=== PATIENT | female | born 1965 | race Caucasian/White ===

== ENCOUNTER → 2023-08-19 | Outpatient (CLI) | payer BC ==
--- NOTE | 2023-08-19 12:37 | CA ---
Stress Echo Report Lorraine Rich Age: 57 Gender: F : 1965 Exam Date: 08/19/2023 10:17 Exam Location: [facility] Ht (in): 62 Wt (lb): 155 Ordering Physician: Destini Copeland DO Referring Physician: Negar Hatch Thread Roller: Beatrice Cristobal RDCS Technologist Procedure CPT: Indication: Z82.49 FAMILY HX OF ISCHEM HEART DIS AND OT R07.89 ICD-9 Codes: Rhythm: Patient History: DIFFICULTY IN BREATHING, ELEVATED CHOLESTEROL LEVELS, FAMILY HX OF HEART DISEASE, PRIOR SMOKER Cardiac Medications: Medications in past 24 hours: Contrast: Stress Results Protocol: Derick Total dose(mL): Exercise Duration (min:sec): 9:[address] Depression (mm): Angina Score: Jensen Score: METS: 11.1 Resting HR: 77 Resting BP: 155 / 74 Peak HR: 160 Peak BP: 208 / 67 Max Predicted HR: 164 98 % Max Predicted HR Target HR: 139 Double Product: 30043 Stress Summary: BP Response: Reason for Termination: MAX EXERTION/TARGET HR Cardiac Symptoms: NO SYMPTOMS ECG Analysis Resting ECG: Stress ECG: Arrhythmia: Echo Analysis Resting Echo: Peak Echo Analysis: MEASUREMENTS (Male/Female) Normal Values CONCLUSIONS Excellent exercise tolerance Mildly abnormal EKG changes noted Questionable area in the inferior wall concerning for ischemia Overall the stress test is abnormal and concerning for ischemia Dr. Alex Hall MD (Electronically Signed) Final Date: 19 August 2023 12:37
== END | disposition home or self-care (01) ==
LOC: RADNMMAIN 09:49
PROVIDERS: ATTEND Family Medicine
DX: R94.31 Abnormal electrocardiogram [ECG] [EKG] (principal); R07.89 Other chest pain; E78.00 Pure hypercholesterolemia, unspecified; R06.02 Shortness of breath; Z82.49 Family history of ischemic heart disease and other diseases of the circulatory system
CPT/HCPCS: 93351

== ENCOUNTER → 2023-08-31 | Outpatient (CLI) | payer BC ==
[2023-08-31 18:18] LABS: HCT 39.3 % (37.2-46.3); HGB 13.1 g/dL (12.0-15.0); MCH 31.6 pg (27.0-32.0); MCHC 33.3 g/dL (32.0-37.0); MCV 94.9 FL (80.0-97.0); NRBC Per 100 WBC 0 X 10*3/uL (0.00-0.01); Platelet Count 291 X 10*3/uL (140-440); RBC 4.14 X 10*6/uL (4.10-5.20); RDW 12.2 % (11.5-14.5)
[2023-08-31 18:43] LABS: BUN/Creat Ratio 18.25 Ratio (12.00-20.00); Blood Urea Nitrogen 14.6 mg/dL (9.0-27.0); Calcium 9.4 mg/dL (8.7-10.3); Carbon Dioxide 26.2 mmol/L (21.6-31.8); Chloride 105 mmol/L (96-109); Glucose 115 mg/dL (70-110); Sodium 140 mmol/L (135-145)
== END | disposition home or self-care (01) ==
LOC: LABPAT 09:39
PROVIDERS: ATTEND Internal Medicine Cardiovascular Disease
DX: Z01.812 Encounter for preprocedural laboratory examination (principal); R07.2 Precordial pain
CPT/HCPCS: 36415; 80048; 85027

== ENCOUNTER 2023-09-14 06:22 | Day surgery (SDC) | payer BC ==
[2023-09-09 11:56] VITALS: BMI 27.8
[~2023-09-14 06:22] MED LIST: ALPRAZolam 0.25 MG TAB PO PRN; ATORVASTATIN 80 MG TAB PO STA; HEPARIN SODIUM,PORCINE (1 ML) 2,500 UNIT in SODIUM CHLORIDE 0.9% 250 ML IRRIGATION PRN; HEPARIN SODIUM,PORCINE 10,000 UNIT in SODIUM CHLORIDE 0.9% 1,000 ML IRRIGATION PRN; NITROGLYCERIN SL TABS 0.4 MG TAB SUBLINGUAL PRN
[2023-09-14] MEDS: SODIUM CHLORIDE 0.9% 1,000 ML IV ONE (06:44)
[2023-09-14] MEDS: ALPRAZolam 0.5 MG TAB PO PRN (06:59)
[2023-09-14] MEDS: SODIUM CHLORIDE 0.9% 1,000 ML in EMPTY BAG 1 BAG IV SCH (07:01)
[2023-09-14] MEDS: ASPIRIN 325 MG TAB PO STA (07:01)
[2023-09-14] MEDS ORDERED: LIDOCAINE 1% INJ 10MG/ML (20 ML MDV) ONE (07:10)
[2023-09-14] MEDS ORDERED: HEPARIN SODIUM 1,000 UN/ML (10ML VL) ONE (07:10)
[2023-09-14] MEDS ORDERED: VERAPAMIL 2.5 MG/ML 2 ML AMP ONE (07:10)
[2023-09-14 07:22] VITALS: RESP 16; TEMP 98.4
[2023-09-14] MEDS ORDERED: fentaNYL (PF) 50 MCG/ML 2 ML AMP ONE (07:26)
[2023-09-14] MEDS: MIDAZOLAM 2 MG/2 ML VIAL IVP ONE (07:34)
[2023-09-14] MEDS: fentaNYL (PF) 50 MCG/ML 2 ML AMP IVP ONE (07:34)
[2023-09-14] MEDS: LIDOCAINE 1% INJ 10MG/ML (20 ML MDV) SQ ONE ×2 (07:34→07:35)
[2023-09-14] MEDS: VERAPAMIL SYRINGE (5 MG/10 ML) INTRAARTER ONE (07:42)
[2023-09-14] MEDS: HEPARIN SODIUM 1,000 UN/ML (10ML VL) IVP ONE (07:49)
[2023-09-14] MEDS: IOPAMIDOL-370 100ML BTL INJ ONE (08:02)
--- NOTE | 2023-09-14 08:44 | CC ---
CARDIAC CATHETERIZATION REPORT INDICATIONS: Chest pain with abnormal stress test showing ischemia in the right coronary artery distribution. PROCEDURE NOTE: After obtaining informed consent, left heart catheterization and coronary angiogram were performed via the right radial artery using standard Drake catheters. The patient tolerated the procedure well without any obvious immediate complications. The patient received moderate conscious sedation. Total sedation time was 25 minutes. A TR band was used for hemostasis. Right radial artery access was obtained using Seldinger technique. A 6-Czech sheath was placed. Catheters and wires were floated into the ascending aorta under fluoroscopic guidance. The patient received verapamil and heparin per protocol. FINDINGS: 1. Hemodynamics: Left ventricular end-diastolic pressure is 8 to 10 mm, there is no significant gradient across the aortic valve. 2. Left Ventriculogram: Left ventriculogram is not performed. 3. Angiographic Data: a.Right Coronary Artery: Right coronary artery is a large dominant vessel and is free of stenosis. Left main coronary artery is a normal-sized vessel and is free of disease, divides into left anterior descending coronary artery, ramus intermedius and circumflex coronary artery. LAD and its branches, circumflex coronary artery and the ramus are free of significant disease. CONCLUSIONS: 1. No significant obstructive CAD is noted on this study. 2. The patient's stress test is a false-positive stress test and her management is going to be in the form of risk factor modification. She has severely elevated cholesterol. She is intolerant of statins, hence we are treating her with Repatha and she will continue the aspirin. MMODL / IJN: [id number] /
[2023-09-14] MEDS ORDERED: ACETAMINOPHEN TAB 325 MG TAB PO PRN (10:33)
[2023-09-14] MEDS: ACETAMINOPHEN TAB 325 MG TAB ONE (10:34)
[2023-09-14 10:54] VITALS: PULSE 68
[2023-09-14 15:47] VITALS: BP 108/72
== END 2023-09-14 12:01 | disposition home or self-care (01) ==
LOC: CATHCVL 06:22
PROVIDERS: ATTEND Internal Medicine Cardiovascular Disease
DX: I25.10 Atherosclerotic heart disease of native coronary artery without angina pectoris (principal); E78.5 Hyperlipidemia, unspecified; K21.9 Gastro-esophageal reflux disease without esophagitis; E07.9 Disorder of thyroid, unspecified; Z87.891 Personal history of nicotine dependence; Z79.82 Long term (current) use of aspirin; Z79.899 Other long term (current) drug therapy; Z79.890 Hormone replacement therapy
CPT/HCPCS: 93458; 99152; 99153; C1769; C1894; J2250; J2001; J3010; J1644; Q9967